=== PATIENT | female | born 1950 | race African-American/Black ===

== ENCOUNTER 2019-07-17 05:54 | Day surgery (SDC) | payer MEDICARE, OTHER ==
[~2019-07-17] VITALS: Ht 152.4 cm; Wt 69.9 kg
[~2019-07-17 05:54] MED LIST: DOCU100C28 PO; ESOM40CA PO; FLUC150T PO; HYDR-3164 PO; METH4TAB2 PO; NIFE30TA15 PO; NYST50002 PO; ORPH100T PO; OXYC1TAB7 PO; TRIA1TAB3 PO
[2019-07-17] MEDS ORDERED: ASPI81TA50 PO (06:22)
[2019-07-17] MEDS ORDERED: TOLT4CAP PO (06:22)
[2019-07-17] MEDS ORDERED: POTA10TA6 PO (06:22)
[2019-07-17] MEDS ORDERED: RANI150C PO (06:22)
[2019-07-17] MEDS ORDERED: TRIA1CAP3 PO (06:22)
[2019-07-17] MEDS ORDERED: LIDOCAINE 2% PF 5 ML VIAL. ONE (06:52)
[2019-07-17] MEDS ORDERED: PROPOFOL 20 ML IV ONE (06:52)
[2019-07-17] MEDS ORDERED: fentaNYL PF VIAL 100 MCG/2 ML VIAL ONE (06:52)
[2019-07-17] MEDS ORDERED: PROCHLORPERAZINE 10 MG/2 ML VIAL. IV PRN (07:00)
[2019-07-17] MEDS ORDERED: LIDOCAINE 1% PF 2 ML VIAL. ID PRN (07:00)
[2019-07-17] MEDS ORDERED: HYDROmorphone 2 MG/ML VIAL IV PRN (07:00)
[2019-07-17] MEDS ORDERED: MORPHINE SULFATE 2 MG/ML VIAL. IV PRN (07:00)
[2019-07-17] MEDS ORDERED: IV RINGERS,LACTATED 1000ML 1,000 ML IV SCH (07:00)
[2019-07-17] MEDS ORDERED: BUPIVACAINE MPF 0.5% 30 ML VIAL. ONE (07:07)
[2019-07-17] MEDS ORDERED: LIDOCAINE 1% 20 ML VIAL. ONE (07:07)
[2019-07-17] MEDS ORDERED: DEXAMETHASONE SOD PHOS 4 MG/ML VIAL ONE (08:12)
[2019-07-17] MEDS ORDERED: ONDANSETRON PF 4 MG/2 ML VIAL. ONE (08:12)
[2019-07-17] MEDS ORDERED: SEVOFLURANE 16 TO 30 MINUTES. IH ONE (08:12)
--- NOTE | 2019-07-17 08:39 | DISCH ---
DISCHARGE INSTRUCTIONS Condition on Discharge Condition on Discharge: Stable Activity After Discharge Activity Instructions for Disc: Activity as tolerated, Avoid exertion Lifting Instructions after Dis: No heavy lifting, No pulling or pushing, Do not lift >10 pounds Driving Instructions after Dis: Do not drive today Weight Bearing Status after Di: As tolerated Diet after Discharge Diet after Discharge: GI Soft, Regular Wound Incision Care Wound/Incision Care: Ice to area for comfort, Keep wound/cast CDI, Keep wound elevated, Change dressing Other wound/incision instructi: okay to change dressing after 3 days Contacting the [facility] after DC Call your doctor for: Concerns you may have Follow-Up Follow up with: Joana in 2 wks MAGNO HUFFMAN II, MD Jul 17, 2019 08:39
--- NOTE | 2019-07-17 08:43 | PDOC4 ---
Operative Note Operative Note Date of procedure: 07/17/2019 Surgeon: Carlos Huffmna Preoperative diagnosis: Left thumb cyst Postoperative diagnosis: Same Procedure performed: Left thumb cyst excision Anesthesia: Gen. Specimens: Cyst sent to pathology Tourniquet time: Less than 30 minutes Blood loss: 2 mL Complications: None Reason for procedure: Patient is a very pleasant 69-year-old female who presented to my outpatient orthopedic surgery clinic with complaints of worsening swelling and pain at her left thumb. She noticed a bump over her thumb that had been slowly enlarging. Please see my outpatient consult note for further details. We had a discussion of the risks, benefits, and alternatives to the above procedure and she elected to proceed. Description of procedure: Patient was greeted in the preoperative area where the correct digit was verified and marked. She was taken back to the operative suite and her antibiotics started as she was brought back. Once in the operating room, she was transferred gently supine to the operative table and had successful induction of a general anesthetic. The left upper extremity was then prepped and draped in our usual sterile fashion and we conducted our standard preoperative timeout. After this, the extremity was exsanguinated with an Esmarch and tourniquet insufflated to 250 mmHg. I then made a V-type incision centered over the cyst on the dorsum of her thumb overlying P1. Skin was incised with a scalpel and I dissected subcutaneous tissue with a tenotomy, using bipolar cautery to achieve hemostasis. Identified the cyst, retracted the skin flap with a skin hook and dissected the tissue around the cyst. I noted the stalk coming from adjacent to the extensor tendon at the distal portion of the cyst. After delivering the cyst in its entirety from the operative field I cauterized couple bleeders as well as the stalk. I then irrigated out the operative field and closed skin with simple interrupted 3-0 nylon. I then infiltrated the felicia- incisional soft tissues with local anesthetic. All counts correct 2 prior to wound closure. Next, the left thumb and hand were cleansed and dried and Xeroform, gauze, sterile soft roll and a Ender wrap were applied in a thumb spica fashion. Surgery was tolerated well by the patient. No complications. At the conclusion, she was awakened and transferred gently supine to the recovery room cart and taken to PACU in a stable and extubated condition. Postoperative plan is to discharge her home, activity and wound care were discussed with her and her and given and written form. I will see her back in my clinic in 2 weeks, sooner should a problem arise CARLOS HUFFMAN II, MD Jul 17, 2019 08:43
[2019-07-17] MEDS ORDERED: ONDA8TAB9 PO (08:48)
[2019-07-17] MEDS ORDERED: DOCU-109 PO (08:53)
[2019-07-17] MEDS ORDERED: HYDR-3164 PO (08:55)
[2019-07-17] MEDS ORDERED: RACEPINEPHRINE 2.25% 0.5 ML NEBU. NEB ONE (09:00)
[2019-07-17] MEDS ORDERED: DEXAMETHASONE SOD PHOS 4 MG/ML VIAL IVP ONE (09:15)
[2019-07-17] MEDS ORDERED: HYDROcodone/APAP 5/325MG 1 TAB TABLET PO ONE (09:30)
[2019-07-17 10:15] VITALS: BP 128/74
--- NOTE | 2019-07-19 09:07 | PATHOLOGY ---
[facility] Accession Number: [id number] . 01 Material submitted: . thumb - LEFT THUMB CYST. Modifiers: left . 01 Clinical history: . Osteopenia Left thumb cyst . 02 Diagnosis: Fibroadipose tissue, left thumb cyst excision: - Lobular capillary hemangioma. 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 02 Comment: There is no evidence of malignancy. 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 02 Electronically signed: . Samir Isaac MD, Pathologist NPI- [id number] . 01 Gross description: . Received in formalin labeled "Marcie Block, left thumb," is a segment of light donohue tissue measuring 0.8 x 0.7 x 0.7 cm in maximum dimensions. The margin is inked and the specimen is serially sectioned into 3 pieces and entirely submitted in cassette A1. (TSD; 07/17/2019) TOB/TOB 07/17/20192028 Local . 02 Pathologist provided ICD-10: D18.01 . 02 CPT . 091857 Specimen Comment: A courtesy copy of this report has been sent to [phone], [phone] Specimen Comment: [id number] Specimen Comment: Report sent to / DR DELAROSA Performed at: 01 [facility] [address], [place] [id number] MD Denny Morales MD Phone: [phone] Performed at: 02 [facility] [address], [place] [id number] MD Samir Isaac MD Phone: [phone]
== END 2019-07-17 10:30 | disposition home or self-care (01) ==
LOC: SURG 05:54
PROVIDERS: ATTEND Orthopaedic Surgery Sports Medicine
DX: L72.8 Other follicular cysts of the skin and subcutaneous tissue (principal); D18.09 Hemangioma of other sites; I10 Essential (primary) hypertension; K21.9 Gastro-esophageal reflux disease without esophagitis; E03.9 Hypothyroidism, unspecified; E66.9 Obesity, unspecified; Z68.29 Body mass index [BMI] 29.0-29.9, adult; Z98.42 Cataract extraction status, left eye; Z98.41 Cataract extraction status, right eye; Z98.890 Other specified postprocedural states; Z98.51 Tubal ligation status; Z72.89 Other problems related to lifestyle
CPT/HCPCS: 26115; 88305; 94640; A7015; J0690; J1100; J2001; J2405; J2704; J3010; J3490

== ENCOUNTER → 2021-02-01 | Outpatient (CLI) | payer MEDICARE, OTHER ==
[~2021-02-01] MED LIST changes: +ASPI81TA50 PO; +DOCU-109 PO; +ONDA8TAB9 PO; +POTA10TA6 PO; +RANI150C PO; +TOLT4CAP PO; +TRIA1CAP3 PO
--- NOTE | 2021-02-01 13:37 | KCIC ---
EXAMINATION: Magnetic resonance imaging (MRI) of the lumbar spine without contrast 02/01/2021 12:30 PM HISTORY: Low back pain. TECHNIQUE: Multiplanar multi-weighted MRI of the lumbar spine was performed without intravenous contr ast using the standard lumbar spine protocol. Contrast information: None administered. COMPARISON: None available. FINDINGS: There is minimal retrolisthesis of L1 on L2 and L2-L3. Minimal anterolisthesis of L3 on L4. Grade 1 a nterolisthesis of L4 on L5 measuring 8 mm. There is retrolisthesis of L5 on S1 measuring 4 mm. No def inite pars defect is identified. Vertebral body heights are maintained. Moderate disc height loss at L5-S1 with Modic type III endplate degenerative changes are identified at L5-S1. Moderate disc height loss at L4-L5. Disc desiccation identified at all levels of lumbar spine. No acute compression defor mity. Abdominal aorta is normal in caliber. There is a simple cyst in the anterior mid to superior po le right kidney measuring 1.1 cm. Visualized portions of the sacrum appear intact. T12-L1: Disc is normal in configuration. Mild facet arthropathy. No neuroforaminal or spinal canal st enosis. L1-L2: Mild disc bulge. Mild left facet arthropathy. Mild left neural foraminal stenosis. Mild spinal canal stenosis. L2-L3: There is a mild disc bulge. Mild facet arthropathy with ligamentum flavum infolding. Mild bila teral neuroforaminal stenosis. There is a perineural sheath diverticula in the left. L3-L4: There is a circumferential disc bulge asymmetric to the left with left far lateral disc protru sierra. Moderate facet arthropathy ligamentum flavum infolding. Mild to moderate bilateral neuroforamin al stenosis. Moderate spinal canal stenosis. L4-L5: There is a circumferential disc bulge which appear symmetric. Severe facet arthropathy with le ft partial hemilaminectomy changes. Moderate bilateral neuroforaminal stenosis. There is a unilateral left L4-L5 fusion posteriorly with left-sided pedicle screws. There is moderate to severe persistent spinal canal stenosis. L5-S1: There is a circumferential disc bulge with central disc extrusion. Moderate facet arthropathy ligamentum flavum infolding. Severe left and moderate right neuroforaminal stenosis. Mild spinal julio l stenosis. There is bilateral subarticular zone stenosis. IMPRESSION: Moderate degenerative changes of the lumbar spine as described in detail above. Left L4-L5 posterior fusion with partial laminectomy changes with persistent moderate to severe spinal canal stenosis and neuroforaminal stenosis as detailed above. Electronically signed by: Yaiam Lugo MD (02/01/2021 1:34 PM) [id number]
== END ==
LOC: KCIC MRI 12:20
PROVIDERS: ATTEND Family Medicine
DX: M51.17 Intervertebral disc disorders with radiculopathy, lumbosacral region (principal); M47.27 Other spondylosis with radiculopathy, lumbosacral region; M48.07 Spinal stenosis, lumbosacral region
CPT/HCPCS: 72148